=== PATIENT | male | born 1950 | race Caucasian/White ===

== ENCOUNTER 2025-03-20 09:36 | Emergency (ER) | payer MEDICARE, SELFPAY ==
[2025-03-20 09:39] VITALS: BP 135/79
--- NOTE | 2025-03-20 11:32 | ED.GENMED ---
History of Present Illness
General
Chief Complaint: Musculo-Skeletal Complaint
Source: patient
Exam Limitations: none
Time Seen by Provider: 03/20/25 11:04
Nursing documentation reviewed up to this point in time: agreed with
History of Present Illness
History of Present Illness:
Patient is a 74-year-old male presenting to the emergency department with right wrist pain following trip and fall 2 nights ago. Patient states he was walking into his house when he tripped on the last 2 stairs falling with his right hand
outstretched. He reports worsening pain and swelling in his right hand/wrist since. He has very limited range of motion right wrist secondary to pain.
Patient is adamant that there was no head strike or LOC. Patient states that he was not alone at the time of fall. Patient denies any pain in his lower extremities or difficulties ambulating since.
He denies any fever or chills.
Patient states he has suffered many injuries to his wrists in the past as he played hockey growing up.
Review of Systems
Review of Systems
Allergies reviewed?: Yes
All Other Systems: ROS reviewed and negative except as documented in HPI and ROS
Phy Exam
Physical Exam
Physical Exam:
Vitals: Tachycardic on arrival, improved on my assessment. Afebrile
General: Patient is well appearing, no acute distress
Skin: Warm and dry, no rashes or lesions
Head: Normocephalic, atraumatic
Eyes: Sclera nonicteric.
Throat: Protecting airway
Neck: Normal ROM, no cervical spine tenderness, no meningismus
Cardiac: Regular rate and rhythm, no murmurs.
Pulm: Normal respiratory effort, no wheezes, rales, rhonchi heard on exam.
Abdomen: No abdominal tenderness.
Extremities: Tenderness and edema of right wrist, more notable at dorsal aspect. Small area of erythema of dorsal right wrist at radial aspect. Limited ROM in R wrist due to pain. No significant warmth in right wrist or red streaking. No open
wounds. 2+ palpable R radial pulse w/ normal capillary refill.
Neuro: AAOx3. Grossly intact.
Psychiatric: Normal affect.
Course
Orders/Labs/Results
Orders:
Orders
03/20/25 09:44
CR Hand - Right Min 3 Views Urgent
Comment:
Reason For Exam: fall
CR Wrist - Right Min 3 Views Urgent
Comment:
Reason For Exam: fall
03/20/25 12:35
Prednisone [Deltasone] 50 mg PO NOW STA
Vital Signs
Initial and Last Documented VS:
Initial Vital Signs
Temp Pulse Resp BP Pulse Ox
98.7 F 113 18 135/79 96
03/20/25 09:39 03/20/25 09:39 03/20/25 09:39 03/20/25 09:39 03/20/25 09:39
Last Documented Vital Signs
Temp Pulse Resp BP Pulse Ox
98.7 F 95 16 139/87 98
03/20/25 09:39 03/20/25 12:53 03/20/25 12:53 03/20/25 12:53 03/20/25 12:53
MDM/Problems Addressed
Differential Diagnosis Includes:
Not limited to: Wrist fracture, hand fracture, wrist sprain, wrist contusion, osteoarthritis, gouty arthritis, septic arthritis, etc.
MDM/Problems Addressed:
74-year-old male with right wrist pain and swelling following trip and fall 2 nights ago. No head strike or loss of consciousness. Vitals and physical exam as above. Patient mildly tachycardic on arrival although improved by my assessment. He is
afebrile. X-ray of right wrist and right hand negative for acute fracture. No significant warmth or infectious symptoms to suggest septic joint. Consider possibility of inflammatory arthritis including gout although this would be very incidental
given recent trauma. He also has no history of gout. However�will give dose of prednisone in ED. He has a wrist splint at home into a use. Possible wrist sprain. Advised ice, elevation, Tylenol for pain. Strict return precautions discussed
including any signs of infection. Patient will follow-up with orthopedics for further evaluation�contact information provided today. Stable for discharge home. Patient seen with attending physician
Chronic conditions affecting care:
N/A
Acute Exacerbation and/or Progression of Chronic Illness:
N/A
*Radiology
Radiology exam reviewed: preliminary read by ED provider (X-rays of right wrist and right hand reviewed by me-no acute fracture) and radiology read reviewed
*Pulse Oximetry
Patient hypoxic: no
*EKG
Interpreted by ED Provider?: NA
*Desktop Support Associate Interpretation
Rate: Desktop Support Associate- N/A
*Critical Care Note
Total Time (30-74mins, 75-104mins- exclusive of procedures): Not Applicable
ED Attending Note
-
Portions of this chart may have been created with voice recognition software.� Occasional wrong word or��sound alike� substitutions may have occurred due to the inherent limitations of voice recognition software.
Discharge Plan
Departure
Patient Disposition: Home (Routine Discharge)
Date of Disposition: 03/20/25
Time of Disposition: 12:35
Patient with high blood pressure during this ER visit?: Yes
Condition: Good
Covid-19: Not Applicable
Discharge Problem:
Pain in right wrist
Instructions: BLOOD PRESSURE
Referrals:
Ignacia Ansari NP [Family Provider] -
Gustavo Driscoll MD [Active] - Call in 1-3 days for appt
Omar Harvey MD [Active] - Call in 1-3 days for appt
Activity Restrictions/Additional Instructions:
RETURN TO THE EMERGENCY DEPARTMENT ANY FEVER, CHILLS, WORSENING REDNESS, SWELLING, WARMTH OF RIGHT WRIST, INTRACTABLE PAIN, OR ANY OTHER CONCERNS
- As discussed�your x-ray showed no evidence of acute fracture of your right wrist or hand. You should wear wrist splint and continue to elevate and apply ice. You can take Tylenol as needed for pain.
- Follow-up with orthopedics for further evaluation/management to ensure that symptoms are improving
- Monitor very closely for signs of infection
Interventions
Interventions:
*Risk Screen - Suicide Last Done: 03/20/25 09:39
*General Assessment Last Done: 03/20/25 09:39
*Neglect/Abuse Screening Last Done: 03/20/25 09:39
*ED- Fall Risk Assessment Last Done: 03/20/25 10:45
*ED COVID-19 Vaccine History Last Done: 03/20/25 09:39
*Nursing Disposition Last Done: 03/20/25 12:54
ED-Musculoskeletal Assessment Last Done: 03/20/25 10:45
Discharge Date and Time
Discharge Date/Time: 03/20/25 12:54
Print Language: MALAY
[2025-03-20 11:48] VITALS: BP 143/81
[2025-03-20] MEDS: DELTASONE 50 MG PO (12:47)
[2025-03-20 12:53] VITALS: BP 139/87
== END 2025-03-20 12:54 | disposition home or self-care (01) ==
LOC: EMR 09:36
PROVIDERS: EMERGENCY PHYSICIAN Emergency Medicine; FAMILY PHYSICIAN Nurse Practitioner Family
DX: M25.531 Pain in right wrist (principal); W10.9XXA Fall (on) (from) unspecified stairs and steps, initial encounter; Y93.01 Activity, walking, marching and hiking
CPT/HCPCS: 99283; 73110; 73130

== ENCOUNTER 2025-04-15 16:26 | Inpatient (IN) | payer MEDICARE, SELFPAY ==
[2025-04-15 11:09] VITALS: BP 144/84
[2025-04-15 11:14] VITALS: BMI 25.1
[2025-04-15 12:00] VITALS: BP 143/71
--- NOTE | 2025-04-15 12:55 | ED.GENMED ---
History of Present Illness
General
Chief Complaint: Fall
Source: patient
Time Seen by Provider: 04/15/25 12:24
History of Present Illness
History of Present Illness:
74-year-old male with past medical history of hypertension, atrial fibrillation status post CEA presenting to the emergency department via EMS from home for evaluation after last night his feet got tangled causing him to fall onto his right side
injuring, initially was able to get himself off the ground but has had progressively worsening pain since and now unable to ambulate. Patient notes that this was the first time he is ever fallen, he is anticoagulated on Eliquis due to his history
of A-fib but maintains he did not and has no current headache or other neurologic symptoms. Patient denies any history of right hip injury. He did receive 80 mcg of fentanyl by EMS but still notes about a 5 out of 10 pain currently. No other
injuries were sustained.
Past History
Past History
ED Past Medical History: Arrthythmia and HTN
ED Past Surgical History: Orthopedic, Tonsilectomy and Other (Carotid endarterectomy)
Social History
Tobacco: Non-smoker
Alcohol: None
Drug: None
Personal:
Living: with family
Review of Systems
Review of Systems
All Other Systems: ROS reviewed and negative except as documented in HPI and ROS
Phy Exam
Physical Exam
Physical Exam:
GENERAL: Alert , in no apparent distress
HEAD: Normocephalic atraumatic
EYE: Clear conjunctiva
NECK: Supple, no midline tenderness
ENT: o/p clr, mmm.
CARDIAC: Regular rate and rhythm .
LUNGS: Clear breath sounds bilaterally, no acute respiratory distress, no wheezes/rales/rhonchi
NEUROLOGICAL: Alert and oriented, no focal neuro deficits
SKIN: Warm and dry, skin intact.
MUSCULOSKELETAL: Right lower extremity: No obvious deformity, shortening or rotation of the extremity. There is tenderness over the proximal anterior and somewhat lateral femur/hip. Patient unable to forward flex or extend the hip as well as
unable to abduct/adduct the right lower extremity. Extremity is otherwise warm well-perfused, palpable pedal and tibial pulse. Sensation grossly intact to light touch. No edema, well perfused.
PSYCH: Normal and appropriate interaction.
Course
Orders/Labs/Results
Orders:
Orders
04/15/25 12:19
Hip, Right 2-3 Views [CR Hip - RT w/wo Pel 2-3 Vw*] Urgent
Comment:
Reason For Exam: fall
Include a pelvis x-ray?: Yes
04/15/25 12:51
CT Head W/o Iv Contrast Urgent
Comment:
Reason For Exam: fall, on eliquis
HYDROmorphone [Dilaudid] 0.5 mg IV NOW STA
04/15/25 13:13
Basic Metabolic Panel Urgent
Complete Blood Count/With Diff Urgent
PTT Urgent
Prothrombin Time Urgent
04/15/25 15:15
HYDROmorphone [Dilaudid] 0.5 mg IV NOW STA
04/15/25 15:56
Admit/Transfer Patient As Directed
Co-Sign Provider:
Level of Care: Inpatient admission
Assign to:: Medical/Surgical
Physician / Group: Jean Pierre Hunter
Diagnosis: Impacted nondisplaced right femoral neck fracture
Reason for Hospitalization: Impacted nondisplaced right femoral neck fracture
Expected length of stay greater than two midnights?: Yes
ELOS- Estimated Length of Stay in days: 3
I certify the patient meets the requirements for IP care: Yes
PRN Pain Medication Management As Directed
May give lesser potent ordered pain med per pt: Yes
preference::
Protocol:: Medication orders for pain may be administered in a
manner that supports deferring to patient preference
when the pt is:
- Requesting an ordered lesser potent pain medication.
Least to most potent pain medications are defined
as: acetaminophen < NSAID < tramadol < opioids
(morphine, oxycodone, hydromorphone).
- Requesting a lesser dose of the same medication IF
ORDERED.
- Requesting a less intrusive route of administration
if both routes are prescribed by the provider (PO <
IV).
04/15/25 15:57
Code Status As Directed
Resuscitation Status: Do not resuscitate
Reached after discussion with pt or family/Healthcare POA: Yes
Decision communicated with: patient
DNR Bracelet Application ONCE
Abnormal Lab Results
04/15/25
13:13
RBC 3.84 L 10^6/uL
(4.70-6.10)
Hgb 12.5 L g/dL
(13.0-18.0)
Hct 35.5 L %
(39.0-52.0)
MCH 32.6 H pg
(27.0-31.0)
RDW 14.9 H %
(11.5-14.5)
Absolute Lymphs (auto) 0.9 L 10^3/uL
(1.2-3.4)
Absolute Monos (auto) 0.7 H 10^3/uL
(0.1-0.6)
Neutrophils % 77.0 H %
(42.2-75.2)
Lymphocytes % 12.7 L %
(20.5-51.1)
Monocytes % 9.6 H %
(1.7-9.3)
PT 16.6 H Sec
(11.4-14.6)
04/15/25 13:13
04/15/25 13:13
Vital Signs
Initial and Last Documented VS:
Initial Vital Signs
Temp Pulse Resp BP Pulse Ox
98.1 F 86 16 144/84 94
04/15/25 11:09 04/15/25 11:09 04/15/25 11:09 04/15/25 11:09 04/15/25 11:09
Last Documented Vital Signs
Temp Pulse Resp BP Pulse Ox
98.1 F 94 16 148/86 87
04/15/25 11:09 04/15/25 16:00 04/15/25 16:00 04/15/25 14:07 04/15/25 16:00
MDM/Problems Addressed
Differential Diagnosis Includes:
Proximal hip/femur fracture, pelvic fracture, bursitis, contusion, intracranial bleeding
MDM/Problems Addressed:
74-year-old male presenting to the ER for evaluation for an accidental trip and fall that occurred last night, now unable to ambulate. No history of falls in the past. Patient anticoagulated on Eliquis due to history of atrial fibrillation. X-ray
of the right hip ordered on arrival. Will order head CT given potential for distracting injury and patient's anticoagulated status. Pain control with Dilaudid. Patient may need PT and case management consult as he is currently unable to ambulate
and may not be able to discharge home safely.
Chronic conditions affecting care: Arrhythmia
*Radiology
Radiology exam reviewed: preliminary read by ED provider (Right femoral neck fracture) and radiology read reviewed
*Pulse Oximetry
Patient hypoxic: no
*Critical Care Note
Total Time (30-74mins, 75-104mins- exclusive of procedures): Not Applicable
Patient Management
Discussion with other providers: Hospitalist and Contract Graphic Designer
Escalation/DeEscalation of care consider admission/obs:
Patient's x-ray of the right hip does show a nondisplaced right femoral neck fracture. The images were sent to orthopedics who will see the patient in consult. Labs appear without any significant acute abnormalities. Hospitalist team was notified
and accepts for continued evaluation and treatment. Patient will likely need operative management for his hip but given he is anticoagulated will likely need at least 1 day for Eliquis washout.
ED Attending Note
-
Portions of this chart may have been created with voice recognition software.� Occasional wrong word or��sound alike� substitutions may have occurred due to the inherent limitations of voice recognition software.
Discharge Plan
Departure
Patient Disposition: Admit
Date of Disposition: 04/15/25
Time of Disposition: 15:00
Presentation/result/management discussed w/ accepting MD/DO: Hospitalist
Discharge Problem:
Closed fracture of neck of right femur
Prescriptions:
No Action
hydrocodone-ibuprofen 7.5-200 mg Tablet
1 tab PO BIDPRN PRN (Reason: severe pains)
Patient Comments:
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
atorvastatin [Lipitor] 20 mg Tablet
20 mg PO DAILY
metoprolol succinate [Toprol XL] 100 mg Tablet Extended Release 24 Hr
100 mg PO DAILY
Theragen Tablet
1 tab PO DAILY
aspirin 81 mg Tablet,Delayed Release (Dr/Ec)
81 mg PO DAILY
tamsulosin [Flomax] 0.4 mg Capsule
0.4 mg PO DAILY
amlodipine [Norvasc] 10 mg Tablet
10 mg PO DAILY
escitalopram oxalate [Lexapro] 5 mg Tablet
5 mg PO DAILY
Eliquis 5 mg Tablet
5 mg PO BID
Referrals:
Ignacia Ansari NP [Family Provider] -
Interventions
Interventions:
*Risk Screen - Suicide Last Done: 04/15/25 11:11
*General Assessment Last Done: 04/15/25 11:09
*Neglect/Abuse Screening Last Done: 04/15/25 11:11
*ED- Fall Risk Assessment Last Done: 04/15/25 11:09
*ED COVID-19 Vaccine History Last Done: 04/15/25 11:09
ED-Musculoskeletal Assessment Last Done: 04/15/25 11:13
ED- Neurological Assessment Last Done: 04/15/25 11:13
ED-Skin Assessment Last Done: 04/15/25 11:13
Discharge Date and Time
Print Language: SIER[place] LEONE[place]
[2025-04-15] MEDS: DILAUDID 0.5 MG IV ×3 (13:14→19:08)
[2025-04-15 13:24] LABS: % Basophils 0.4 % (0-2); % Immature Granulocytes 0.3 % (0-0.5); % Lymphocytes 12.7 % (20.5-51.1); % Monocytes 9.6 % (1.7-9.3); Absolute Lymphocytes 0.9 10^3/uL (1.2-3.4); Absolute Monocytes 0.7 10^3/uL (0.1-0.6); Absolute Neutrophils 5.3 10^3/uL (1.4-6.5); Hematocrit 35.5 % (39.0-52.0); Hemoglobin 12.5 g/dL (13.0-18.0); Mean Corp Hgb Conc. 35.2 g/dL (33.0-37.0); Mean Corpuscular Hgb 32.6 pg (27.0-31.0); Mean Corpuscular Volume 92.4 fL (80.0-94.0); Mean Platelet Volume 9.2 fL (7.4-10.4); Nucleated Red Blood Cells % 0 % (-); Platelet Count 145 10^3/uL (130-400); Red Blood Cell Count 3.84 10^6/uL (4.70-6.10); Red Cell Dist. Width 14.9 % (11.5-14.5); White Blood Cell Count 6.9 10^3/uL (4.8-10.8)
[2025-04-15 13:37] LABS: INR 1.32; PT 16.6 Sec (11.4-14.6)
[2025-04-15 13:38] LABS: APTT 33.6 Sec (23.4-35.0)
[2025-04-15 14:07] VITALS: BP 148/86
[2025-04-15 14:14] LABS: Blood Urea Nitrogen 14 mg/dl (9-20); Calcium 8.6 mg/dl (8.4-10.2); Carbon Dioxide 22 mmol/L (22-30); Chloride 105 mmol/L (98-107); Estimated Creatinine Clearance 86 ml/min; Glucose 94 mg/dl (70-99); Potassium 4.1 mmol/L (3.5-5.1); Sodium 136 mmol/L (135-145); eGFR > 60.00
--- NOTE | 2025-04-15 15:17 | HPS.HSE ---
Family Physician
-
Family Physician: Ignacia Ansari NP
Chief Complaint
-
Mechanical fall
History of Present Illness
Patient is a 74-year-old male with past medical history significant for hypertension, atrial fibrillation and depression/anxiety who presented to [facility] ED for evaluation of mechanical fall. Patient reports that tip of his toes got caught on bottom
side of railing on deck causing him to fall. He reports landing on right side and denies head strike. He has abrasions to right arm and pain in right hip. He was able to get himself up, he did an army crawl and able to get up to a chair but had
difficulty ambulating, this morning he was unable to ambulate at all. Patient has bilateral upper extremity bruising that he states he has all the time from being on Eliquis. Patient denies any recent illness, fever, chills, cough, shortness of
breath, chest pain, nausea, vomiting, constipation, diarrhea or urinary symptoms.
Medical History
Past Medical History
Past Medical History: Reports Other
Additional Past Medical History:
hypertension
atrial fibrillation
depression/anxiety
Past Surgical History: Reports Orthopedic and Other
Additional Past Surgical History:
bilateral carotid CEA
tonsillectomy
bilateral cataract extraction
Social History
Tobacco: Former Smoker (quit approximately 20 years ago)
Alcohol: Daily (2-3 beers daily )
Drug: None
Living: Alone
Employment: Retired
Family History
Family History: Not pertinent
Allergies / Home Medications
Allergies reflects when Allergies were last updated in [facility].
Home Medications with original date entered in [facility]
Allergy/Medication List:
Allergies
Allergy/AdvReac Type Severity Reaction Status Date / Time
NKA - No Known Allergies Allergy Unknown Uncoded 03/20/25 09:44
Home Medications
amlodipine 10 mg tablet (Norvasc) 10 mg PO DAILY 04/15/25
apixaban 5 mg tablet (Eliquis) 5 mg PO BID 04/15/25
aspirin 81 mg tablet,delayed release 81 mg PO DAILY 04/15/25
atorvastatin 20 mg tablet (Lipitor) 20 mg PO DAILY 04/15/25
escitalopram oxalate 5 mg tablet (Lexapro) 5 mg PO DAILY 04/15/25
hydrocodone 7.5 mg-ibuprofen 200 mg tablet 1 tab PO BIDPRN PRN severe pains 04/15/25
metoprolol succinate 100 mg tablet,extended release 24 hr (Toprol XL) 100 mg PO DAILY 04/15/25
tamsulosin 0.4 mg capsule (Flomax) 0.4 mg PO DAILY 04/15/25
therapeutic multivitamin 1 tab PO DAILY 04/15/25
Review of Systems
-
History Source: Patient
Musculoskeletal: Reports Joint Pain (right hip pain )
Physical Exam
Vital Signs
Vital Signs
Temp Pulse Resp BP Pulse Ox
98.1 F 96 16 148/86 95
04/15/25 11:09 04/15/25 14:07 04/15/25 14:11 04/15/25 14:07 04/15/25 12:45
Physical Exam
General: Well Developed, Well Nourished, No Apparent Distress and Conversant
HEENT: NormoCephalic, Moist mucous membranes, Atraumatic, Lane Conjunctivae, Nose Appears Normal and Ears Appear Normal
Respiratory: Clear
Cardiac: S1/S2 and Regular Rhythm
Breast: Deferred by me
GI: Soft, Non Tender, Non Distended and Normal Bowel Sounds
Rectal: Deferred by Provider
Genito-urinary: Deferred by me
Musculoskeletal: No Clubbing, No Cyanosis, Edema, Left Lower Extremity (trace), Edema, Right Lower Extremity and Other (limited ROM to right hip, unable to forward flex or extend, unable to abduct/adduct the right lower extremity )
Skin: Warm, IV/Catheter Site and Other (bruising to bilateral upper and lower extremities )
Neuro: Awake, Alert, AO x 3 and Nonfocal/grossly intact
Psych: Calm and Intact Judgment/Insight
Laboratory Results
-
04/15/25 13:13
04/15/25 13:13
Laboratory Results
PT 16.6 Sec (11.4-14.6) H 04/15/25 13:13
INR 1.32 04/15/25 13:13
APTT 33.6 Sec (23.4-35.0) 04/15/25 13:13
Data Reviewed
-
Diagnostic Radiology: Report Reviewed by me (R Hip: Impacted nondisplaced right femoral neck fracture.)
CT Scan: Report Reviewed by me (Head: No acute intracranial abnormalities. Findings compatible with diffuse cortical atrophy with nonspecific white matter changes as described above.)
Lab Data: Labs Reviewed by me
Impression/Plan
-
IMPRESSION/PLAN:
#mechanical fall
Right Hip X-ray: Impacted nondisplaced right femoral neck fracture.
Head CT: No acute intracranial abnormalities.
Findings compatible with diffuse cortical atrophy with nonspecific white matter changes as described above.
- Admit to med/surg
- Obtain presurgical EKG
- NPO at midnight
- Consult Ortho
- pain regimen
#hypertension
- continue amlodipine and metoprolol
#atrial fibrillation
- continue metoprolol
- Hold Eliquis for surgery
#depression/anxiety
- continue escitalopram
#BPH?
- continue tamsulosin
Code status: DNR
DVT prophylaxis: SCDs
--- NOTE | 2025-04-15 16:12 | W.PN.UPDATE ---
Update Note
Progress Note Update
This note serves as an addendum to the H&P by manager alliance ARLENE Cindy George
HPI
74M HX HTN, Prx AF , chr eliquis , s/p CEA seen at ER s/p mecahanical fall onto the Rt side pw acute Rt Hip pian, Denied hitting head. NEG HCT for acute pathology.
VS: afebrile HR 96 BP 148/85 RR 16 POx 95 on RA
PE:
Right lower extremity:
No obvious deformity, shortening or rotation of the extremity.
tenderness over the proximal anterior and somewhat lateral femur/hip.
unable to forward flex or extend the hip as well as unable to abduct/adduct the right lower extremity. E
XR: Impacted nondisplaced right femoral neck fracture.
labs
04/15/25
13:13
RBC 3.84 L
Hgb 12.5 L
Hct 35.5 L
MCH 32.6 H
RDW 14.9 H
Absolute Lymphs (auto) 0.9 L
Absolute Monos (auto) 0.7 H
Neutrophils % 77.0 H
Lymphocytes % 12.7 L
Monocytes % 9.6 H
PT 16.6 H
IMPRESSION
Impacted nondisplaced right femoral neck fracture s/p mechanincal fall
Benefits of ORIF outweigh to procedd for OR
Head CT: No acute intracranial abnormalities.
- EKG on admission
- NPO and IVF
- Fx set protocol
- Hold Eliquis
- Ortho consulted
Prx atrial fibrillation
- continue metoprolol
- Hold Eliquis for surgery
Depression/anxiety
- continue escitalopram
BPH?
- continue tamsulosin
DVT px :SCDs
DNR pr patient
IP TLM'
[2025-04-15 17:33] VITALS: BP 160/81
[2025-04-15 17:55] VITALS: BP 155/78
[2025-04-15 18:01] VITALS: BMI 24.5
--- NOTE | 2025-04-15 19:29 | PTCARENOTE ---
Pt arrived to [facility] on a stretcher from the ED and was pulled over. Pt in 08/29 pain. Pt has abrasions on the right arm from the right wrist to right elbow which were cleansed with saline and silicone border foams were placed. Pt has an abrasion on
the right ankle KISHORE. Admission questions answered. Call sullivan within reach. Bed locked and in lowest position. Care ongoing.
[2025-04-15] MEDS: FLOMAX 0.4 MG PO (19:39)
[2025-04-15 23:00] VITALS: BP 152/91
[2025-04-16] MEDS: DILAUDID 0.5 MG IV ×4 (02:24→21:05)
[2025-04-16 07:25] VITALS: BP 149/92
[2025-04-16 07:25] LABS: Hematocrit 36.7 % (39.0-52.0); Hemoglobin 12.7 g/dL (13.0-18.0); Mean Corp Hgb Conc. 34.6 g/dL (33.0-37.0); Mean Corpuscular Hgb 32.6 pg (27.0-31.0); Mean Corpuscular Volume 94.1 fL (80.0-94.0); Mean Platelet Volume 9.4 fL (7.4-10.4); Platelet Count 139 10^3/uL (130-400); Red Cell Dist. Width 14.8 % (11.5-14.5); White Blood Cell Count 6.7 10^3/uL (4.8-10.8)
--- NOTE | 2025-04-16 08:00 | CON.ORTHO ---
Consultation
-
Date/Time Consultation Requested: 04/15/2025; time unknown
Date/Time Consultation Performed: 04/16/2025; 0630
Requesting Provider: unknown
Performing Provider: Lisa Macias PA-C for Dr. Holden Deleon
Reason for Consultation: Right femoral neck fracture
Consultation - Orthopedics
History
is a 74 year old male with PMH of hypertension, atrial fibrillation on Eliquis and depression/anxiety seen today for his right hip. He reports he tripped on his deck and landed on his right side. He was able to get up off the ground
initially, but states he did experience pain and difficulty walking following the fall. He presented to ED via EMS where hip x-ray revealed an impacted femoral neck fracture. He endorses aching pain at present. He denies pain elsewhere.
Patient lives independently. He ambulates without assistance at baseline. He denies PMH of DVT, CVA, CA or DM. He denies known history of difficulty with anesthesia.
Allergies / Home Medications
Allergy/AdvReac Type Severity Reaction Status Date / Time
No Known Allergies Allergy Unverified 04/15/25 17:48
�Medication �Instructions �Recorded
amlodipine 10 mg tablet (Norvasc) 10 mg PO DAILY 04/15/25
apixaban 5 mg tablet (Eliquis) 5 mg PO BID 04/15/25
aspirin 81 mg tablet,delayed 81 mg PO DAILY 04/15/25
release
atorvastatin 20 mg tablet (Lipitor) 20 mg PO DAILY 04/15/25
escitalopram oxalate 5 mg tablet 5 mg PO DAILY 04/15/25
(Lexapro)
hydrocodone 7.5 mg-ibuprofen 200 1 tab PO BIDPRN PRN severe pains 04/15/25
mg tablet
metoprolol succinate 100 mg 100 mg PO DAILY 04/15/25
tablet,extended release 24 hr
(Toprol XL)
tamsulosin 0.4 mg capsule (Flomax) 0.4 mg PO DAILY 04/15/25
therapeutic multivitamin 1 tab PO DAILY 04/15/25
Vital Signs / Lab Results
Temp Pulse Resp BP Pulse Ox
99.0 F 116 18 149/92 92
04/16/25 07:25 04/16/25 07:25 04/16/25 07:25 04/16/25 07:25 04/16/25 07:25
04/16/25 06:31
XR Right hip 04/15/25 IMPRESSION:
Impacted nondisplaced right femoral neck fracture.
Directed exam of the right lower extremity reveals no erythema, ecchymosis or lesions. No significant tenderness to palpation about the hip. Thigh soft and compressible. ROM deferred secondary to known fracture. Positive log roll. Calf soft and
nontender. Patient able to wiggle toes, plantar and dorsiflex ankle. Neurovascularly intact distally.
Assessment / Plan
Right femoral neck fracture
--Unfortunately, sustained a femoral neck fracture in his fall. I recommend proceeding with a right hip hemiarthroplasty. The risks, benefits, alternatives, recovery process and potential complications were discussed in detail. We will plan
for OR Monday under the direction of Dr. Tsai after Eliquis washout. Patient would like to proceed with surgery. Surgical and blood consent are signed and on patient chart.
--NPO after midnight 04/18 for OR.
--NWB to RLE until surgery.
--Pain control prn. Ice prn for pain and edema control.
--Antibiotics and irrigation ordered to OR.
--Type and screen ordered.
--Orthopedics will continue to follow along.
[2025-04-16 08:09] LABS: ALT (SGPT) 25 U/L (0-50); AST (SGOT) 41 U/L (17-59); Albumin 3.8 g/dl (3.5-5.0); Alkaline Phosphatase 106 U/L (38-126); Blood Urea Nitrogen 13 mg/dl (9-20); Calcium 8.7 mg/dl (8.4-10.2); Carbon Dioxide 27 mmol/L (22-30); Chloride 102 mmol/L (98-107); Estimated Creatinine Clearance 99 ml/min; Glucose 94 mg/dl (70-99); Potassium 3.7 mmol/L (3.5-5.1); Sodium 136 mmol/L (135-145); Total Bilirubin 2.1 mg/dl (0.2-1.3); Total Protein 6.8 g/dl (6.3-8.2); eGFR > 60.00
[2025-04-16] MEDS: LEXAPRO 5 MG PO (08:13)
[2025-04-16] MEDS: ASPIR LOW (ENTERIC COATED) 81 MG PO (08:13)
[2025-04-16] MEDS: LIPITOR 20 MG PO (08:13)
[2025-04-16] MEDS: TOPROL XL 100 MG PO (08:14)
[2025-04-16] MEDS: THERAGRAN 1 TABLET PO (08:14)
[2025-04-16] MEDS: NORVASC 10 MG PO (08:14)
--- NOTE | 2025-04-16 09:40 | W.PN.HOSP.TC ---
Today's Communication/Plan
-
MSAS protocol
needed Ativan
Folic acid
Thiamine
will d/w ortho about DVT prophylaxis protocol
EKG is ordered
Assessment / Plan
Assessment / Plan
Physical Exam
General: Well Developed, Well Nourished, No Apparent Distress and Conversant
HEENT: NormoCephalic, Moist mucous membranes, Atraumatic, [place] Conjunctivae, Nose Appears Normal and Ears Appear Normal
Respiratory: Clear
Cardiac: S1/S2 and Regular Rhythm
Breast: Deferred by me
GI: Soft, Non Tender, Non Distended and Normal Bowel Sounds
Rectal: Deferred by Provider
Genito-urinary: Deferred by me
Musculoskeletal: No Clubbing, No Cyanosis, Edema, Left Lower Extremity (trace), Edema, Right Lower Extremity and Other (limited ROM to right hip, unable to forward flex or extend, unable to abduct/adduct the right lower extremity )
Skin: Warm, IV/Catheter Site and Other (bruising to bilateral upper and lower extremities )
Neuro: Awake, Alert, AO x 3 and Nonfocal/grossly intact
Psych: Calm and Intact Judgment/Insight
#mechanical fall
Right Hip X-ray: Impacted nondisplaced right femoral neck fracture.
Head CT: No acute intracranial abnormalities.
Findings compatible with diffuse cortical atrophy with nonspecific white matter changes as described above.
- Surgery Monday per ortho for Eliquis washout
- c/w pain control
- will ask ortho service if pharmacological DVT prophylaxis pre - op is permitted.
#essential hypertension
- continue amlodipine and metoprolol
#Permanent atrial fibrillation
Order stat EKG, was not done on admission
- continue metoprolol
- Hold Eliquis for surgery
#depression/anxiety
- continue escitalopram
#BPH
- continue tamsulosin
# Daily alcohol use could be contributing to his falls,. High risk for withdrawal. Patient admits to daily intake of alcohol. Denies withdrawal symptoms right now. Will start MSAS protocol and as needed Ativan. Add thiamine and folic acid
Code status: DNR
DVT prophylaxis: SCDs
Total time spent to see the patient, examine the patient, review data and lab results, discuss treatment plan with patient and nursing staff around 55 minutes
Anticipated Discharge: > 48 hours
Subjective/Interval History
-
Date of Service: April 16, 2025
He denies chest pain or abd pain
Admit to drinking alcohol daily but does not feel withdrawal symptoms
Objective Data
-
Labs:
Laboratory Results
04/16/25
06:31
WBC 6.7
Hgb 12.7 L
Hct 36.7 L
Plt Count 139
Sodium 136
Potassium 3.7
Chloride 102
Carbon Dioxide 27
BUN 13
Creatinine 0.7
Glucose 94
Calcium 8.7
Total Bilirubin 2.1 H
AST 41
ALT 25
Alkaline Phosphatase 106
Vital Signs:
Vital Signs
Temp Pulse Resp BP Pulse Ox
99.0 F 116 18 149/92 92
04/16/25 07:25 04/16/25 08:14 04/16/25 07:25 04/16/25 08:14 04/16/25 08:36
I&O
04/15/25 04/16/25 04/17/25
06:59 06:59 06:59
Intake Total 480 / 480
Output Total 500 / 500
Balance 480 / -20 -500 / -500
--- NOTE | 2025-04-16 09:43 | CM ---
Cm reviewed medical records. Patient lives alone. Patient does not have a history of VN or SNF. Patient does not rely on any DME at this time. Patient is active with his PCP. Patient uses [facility] in [place] for medication services.
CM discussed SNF. Patient would be agreeable to [facility] if recommended by PT. Pending OR on 04/18.
PLAN: home with VN, vs SNF.
[2025-04-16] MEDS: THIAMINE INJECTION 200 MG IV ×2 (10:40→20:55)
[2025-04-16] MEDS: FOLVITE 1 MG PO (10:40)
[2025-04-16] MEDS: ATIVAN 0.5 MG PO (12:07)
--- NOTE | 2025-04-16 12:14 | PTCARENOTE ---
Preop EKG obtained, Afib with RVR. HR remaining in the 110's. MSAS score 4. Dr. Brambila notified. 1x ordered ativan ordered. Care ongoing.
[2025-04-16 15:20] VITALS: BP 150/94
[2025-04-16] MEDS: FLOMAX 0.4 MG PO (17:36)
--- NOTE | 2025-04-16 17:42 | DOWNTIME ---
There was a [employer] Downtime on 04/16/2025 from 1230 to 04/16/2025 at 1550. Downtime documentation of patient's care, including medication administrations, has been reconciled in the electronic record per guidelines. Refer to the
patient's paper chart under the miscellaneous tab to see printed paper medication records and downtime forms.
[2025-04-16] MEDS: HEPARIN 5000 UNITS SC (20:55)
[2025-04-16] MEDS: ATIVAN 1 MG IV (22:25)
[2025-04-16 23:25] VITALS: BP 138/92
[2025-04-17 07:10] VITALS: BP 148/90
--- NOTE | 2025-04-17 08:02 | W.PN.UPDATE ---
Update Note
Progress Note Update
Patient endorses right hip pain and x-rays show impacted and displaced femoral neck fracture. He is slated to undergo right hip hemiarthroplasty April 18, [address] Tsai after Eliquis washout. N.p.o. after midnight. Yasmin on-call to the
operating room. Antibiotic and TXA irrigation to be sent to operating room for tomorrow. Surgical location marked and consent on chart.
[2025-04-17] MEDS: THERAGRAN 1 TABLET PO (08:45)
[2025-04-17] MEDS: FOLVITE 1 MG PO (08:45)
[2025-04-17] MEDS: LIPITOR 20 MG PO (08:45)
[2025-04-17] MEDS: TOPROL XL 100 MG PO (08:45)
[2025-04-17] MEDS: ASPIR LOW (ENTERIC COATED) 81 MG PO (08:45)
[2025-04-17] MEDS: THIAMINE INJECTION 200 MG IV ×2 (08:45→19:24)
[2025-04-17] MEDS: LEXAPRO 5 MG PO (08:45)
[2025-04-17] MEDS: CARDIZEM CD 180 MG PO (08:45)
[2025-04-17] MEDS: ATIVAN 0.5 MG PO ×3 (08:45→21:20)
[2025-04-17] MEDS: HEPARIN 5000 UNITS SC (08:46)
--- NOTE | 2025-04-17 09:25 | W.PN.HOSP.TC ---
Addendum entered and electronically signed by Erika Brambila MD 04/18/25 09:55:
Addendum
Preop evaluation
Patient denies anginal chest pain. No signs of acute congestive heart failure. Normal oxygenation. Patient has underlying cardiac disease. Patient understands risk of anesthesia and surgery. Benefit of flexing his a fracture and making him
ambulatory as soon as possible outweigh the risks.
Original Note:
Today's Communication/Plan
-
Positive alcohol withdrawal symptoms.
Adjusted medications,
High-dose thiamine
DVT prophylaxis until surgery
Assessment / Plan
Assessment / Plan
Physical Exam
General: Well Developed, Well Nourished, No Apparent Distress and Conversant
HEENT: Normocephalic, Moist mucous membranes, Atraumatic, [place] Conjunctivae, Nose Appears Normal and Ears Appear Normal
Respiratory: Clear
Cardiac: S1/S2 and Regular Rhythm
Breast: Deferred by me
GI: Soft, Non Tender, Non Distended and Normal Bowel Sounds
Rectal: Deferred by Provider
Genito-urinary: Deferred by me
Musculoskeletal: No Clubbing, No Cyanosis, Edema, Left Lower Extremity (trace), Edema, Right Lower Extremity and Other (limited ROM to right hip, unable to forward flex or extend, unable to abduct/adduct the right lower extremity )
Skin: Warm, IV/Catheter Site and Other (bruising to bilateral upper and lower extremities )
Neuro: Awake, Alert, AO x 3 and Nonfocal/grossly intact, tremor.
Psych: Calm, mild anxiety noted, Intact Judgment/Insight
# Daily alcohol use could be contributing to his falls.
High risk for withdrawal. Patient admits to daily intake of alcohol.
Admits to mild withdrawal symptoms he had some agitation and/hallucination overnight.
Discussed with nursing staff and patient. Patient prefers scheduled dose of Ativan. I will do low-dose Ativan with holding for sedation parameter. Discussed with nurse, will continue with MCS.
Continue with high-dose thiamine and folic acid
#Right femur fracture
mechanical fall
Right Hip X-ray: Impacted nondisplaced right femoral neck fracture.
Head CT: No acute intracranial abnormalities.
Findings compatible with diffuse cortical atrophy with nonspecific white matter changes as described above.
- Surgery Monday per ortho for Eliquis washout
- c/w pain control
- will ask ortho service if pharmacological DVT prophylaxis pre - op is permitted.
#essential hypertension
- continue amlodipine and metoprolol
#Permanent atrial fibrillation
Order stat EKG, was not done on admission
- continue metoprolol
- Hold Eliquis for surgery
#depression/anxiety
- continue escitalopram
#BPH
- continue tamsulosin
Code status: DNR
DVT prophylaxis: SCDs
Total time spent to see the patient, examine the patient, review data and lab results, discuss treatment plan with patient and nursing staff around 55 minutes
Anticipated Discharge: > 48 hours
Subjective/Interval History
-
Date of Service: April 17, 2025
He denies chest pain or sob, admit to having some withdrawal, wants Ativan to be a scheduled dose
Objective Data
-
Vital Signs:
Vital Signs
Temp Pulse Resp BP Pulse Ox
99.4 F 126 16 148/90 95
04/17/25 07:10 04/17/25 07:10 04/17/25 07:10 04/17/25 08:45 04/17/25 07:10
I&O
04/16/25 04/17/25 04/18/25
06:59 06:59 06:59
Intake Total 480 / 480 960 / 960
Output Total 1250 / 1250 200 / 200
Balance 480 / -20 -290 / -290 -200 / -200
--- NOTE | 2025-04-17 12:51 | CM ---
R hip hemiarthroplasty on 04/18/25. Discharge POC: Most likely SNF. Await PT recommendation.
[2025-04-17 15:00] VITALS: BP 115/81
[2025-04-17] MEDS: FLOMAX 0.4 MG PO (17:12)
[2025-04-17] MEDS: DILAUDID 0.25 MG IV ×2 (17:12→21:21)
[2025-04-17 23:00] VITALS: BP 147/88
[2025-04-18] VITALS (12 sets, daily range): BP systolic 98–155; BP diastolic 54–79
[2025-04-18] MEDS: DILAUDID 0.25 MG IV ×2 (03:01→09:13)
[2025-04-18 07:52] LABS: Hematocrit 35.5 % (39.0-52.0); Hemoglobin 12.9 g/dL (13.0-18.0); Mean Corp Hgb Conc. 36.3 g/dL (33.0-37.0); Mean Corpuscular Hgb 33.4 pg (27.0-31.0); Mean Platelet Volume 9.2 fL (7.4-10.4); Platelet Count 138 10^3/uL (130-400); Red Blood Cell Count 3.86 10^6/uL (4.70-6.10); Red Cell Dist. Width 14.4 % (11.5-14.5); White Blood Cell Count 6.7 10^3/uL (4.8-10.8)
[2025-04-18] MEDS: ANCEF 10 IV (08:23)
[2025-04-18] MEDS: ATIVAN 0.5 MG PO ×2 (08:23→17:18)
[2025-04-18] MEDS: THERAGRAN 1 TABLET PO (08:23)
[2025-04-18] MEDS: ASPIR LOW (ENTERIC COATED) 81 MG PO (08:23)
[2025-04-18] MEDS: LIPITOR 20 MG PO (08:23)
[2025-04-18] MEDS: CARDIZEM CD 180 MG PO (08:24)
[2025-04-18] MEDS: THIAMINE INJECTION 200 MG IV ×2 (08:24→20:38)
[2025-04-18] MEDS: TOPROL XL 100 MG PO (08:24)
[2025-04-18] MEDS: LEXAPRO 5 MG PO (08:24)
[2025-04-18] MEDS: FOLVITE 1 MG PO (08:24)
[2025-04-18 08:35] LABS: ALT (SGPT) 19 U/L (0-50); AST (SGOT) 31 U/L (17-59); Albumin 3.1 g/dl (3.5-5.0); Alkaline Phosphatase 81 U/L (38-126); Blood Urea Nitrogen 13 mg/dl (9-20); Calcium 8.4 mg/dl (8.4-10.2); Carbon Dioxide 26 mmol/L (22-30); Chloride 101 mmol/L (98-107); Estimated Creatinine Clearance 99 ml/min; Glucose 102 mg/dl (70-99); Potassium 3.5 mmol/L (3.5-5.1); Sodium 132 mmol/L (135-145); Total Bilirubin 1.8 mg/dl (0.2-1.3); Total Protein 5.9 g/dl (6.3-8.2); eGFR > 60.00
--- NOTE | 2025-04-18 09:09 | W.PN.HOSP.TC ---
Today's Communication/Plan
-
NPO today
Assessment / Plan
Assessment / Plan
Physical Exam
General: Well Developed, Well Nourished, No Apparent Distress and Conversant
HEENT: Normocephalic, Moist mucous membranes, Atraumatic, [place] Conjunctivae, Nose Appears Normal and Ears Appear Normal
Respiratory: Clear
Cardiac: S1/S2 and Regular Rhythm
Breast: Deferred by me
GI: Soft, Non Tender, Non Distended and Normal Bowel Sounds
Rectal: Deferred by Provider
Genito-urinary: Deferred by me
Musculoskeletal: No Clubbing, No Cyanosis, Edema, Left Lower Extremity (trace), Edema, Right Lower Extremity and Other (limited ROM to right hip, unable to forward flex or extend, unable to abduct/adduct the right lower extremity )
Skin: Warm, IV/Catheter Site and Other (bruising to bilateral upper and lower extremities )
Neuro: Awake, Alert, AO x 3 and Nonfocal/grossly intact, tremor.
Psych: Calm, mild anxiety noted, Intact Judgment/Insight
# Daily alcohol use could be contributing to his falls.
Risk for withdrawal. Patient admits to daily intake of alcohol.
Admits to mild withdrawal symptoms he had some agitation and/hallucination overnight. He seems to stabilize on oral Ativan
Discussed with nursing staff and patient. Patient prefers scheduled dose of Ativan. Discussed with nurse, c/w with MCS.
Continue with high-dose thiamine and folic acid
#Right femur fracture
mechanical fall
Right Hip X-ray: Impacted nondisplaced right femoral neck fracture.
Head CT: No acute intracranial abnormalities.
Findings compatible with diffuse cortical atrophy with nonspecific white matter changes as described above.
- Surgery today 04/18
- c/w pain control
- Appreciate ortho help
# hyponatremia, mild
#essential hypertension
- continue amlodipine and metoprolol
#Permanent atrial fibrillation
Order stat EKG, was not done on admission
- continue metoprolol
- Held Eliquis for surgery
#depression/anxiety
- continue escitalopram
#BPH
- continue tamsulosin
Code status: DNR
DVT prophylaxis: SCDs
Total time spent to see the patient, examine the patient, review data and lab results, discuss treatment plan with patient and nursing staff around 55 minutes
Anticipated Discharge: > 48 hours
Subjective/Interval History
-
Date of Service: April 18, 2025
Doing better, not in DT, taking oral Ativan
no chest pain
NPO today
Objective Data
-
Labs:
Laboratory Results
04/18/25
07:24
WBC 6.7
Hgb 12.9 L
Hct 35.5 L
Plt Count 138
Sodium 132 L
Potassium 3.5
Chloride 101
Carbon Dioxide 26
BUN 13
Creatinine 0.7
Glucose 102 H
Calcium 8.4
Total Bilirubin 1.8 H
AST 31
ALT 19
Alkaline Phosphatase 81
Vital Signs:
Vital Signs
Temp Pulse Resp BP Pulse Ox
99.7 F 116 15 155/79 94
04/18/25 07:22 04/18/25 07:22 04/18/25 07:22 04/18/25 07:22 04/18/25 07:22
I&O
04/17/25 04/18/25 04/19/25
06:59 06:59 06:59
Intake Total 960 / 960 480 / 480
Output Total 1250 / 1250 400 / 400
Balance -290 / -290 80 / 80
--- NOTE | 2025-04-18 11:12 | CM ---
Cm reviewed medical records. Plan for OR today 04/18. Cm will continue to follow for needs.
PLAN: pending PT evaluation Post Operatively.
--- NOTE | 2025-04-18 14:32 | W.IMMPOSTOP ---
Surgical Immed Post Op Note
-
Primary Surgeon: Terry Tsai MD
Assisting Surgeon: Julius Lal PA-C
Pre-op Diagnosis: right femoral neck fracture
Post-op Diagnosis: right femoral neck fracture
Procedure Performed: right hip hemiarthroplasty
Anesthesia Type: general
Specimen / Cultures: none
Estimated Blood Loss: 100mL
Complications: none apparent
Operative Findings: right femoral neck fracture
Implants: [employer] size 12 standard femoral neck, 54mm endoprosthetic head, size 10 cement restrictor
Operative dictation #: [id number]
[2025-04-18] MEDS: NSS 1000 IV (16:38)
[2025-04-18] MEDS: FLOMAX 0.4 MG PO (17:18)
--- NOTE | 2025-04-18 17:38 | SUR.PHASEI ---
vss, no pain, initially no verbal response and then confused to time and place, reorients easily. on discharge awake and alert and oriented to place and self. no pain.
[2025-04-18] MEDS: ANCEF 5 IV (20:37)
[2025-04-18] MEDS: COLACE PO (20:42)
[2025-04-18] MEDS: ATIVAN PO (23:00)
[2025-04-19] VITALS (8 sets, daily range): BP systolic 115–136; BP diastolic 64–81; PULSE 119
[2025-04-19] MEDS: DILAUDID 0.25 MG IV (01:04)
[2025-04-19] MEDS: ANCEF 5 IV (04:15)
[2025-04-19] MEDS: NSS 1000 IV (04:50)
[2025-04-19 07:17] LABS: Hemoglobin 10.6 g/dL (13.0-18.0)
[2025-04-19 07:38] LABS: Blood Urea Nitrogen 22 mg/dl (9-20); Calcium 7.6 mg/dl (8.4-10.2); Carbon Dioxide 27 mmol/L (22-30); Chloride 103 mmol/L (98-107); Estimated Creatinine Clearance 99 ml/min; Glucose 239 mg/dl (70-99); Potassium 3.4 mmol/L (3.5-5.1); Sodium 135 mmol/L (135-145); eGFR > 60.00
[2025-04-19] MEDS: VITAMIN B1 100 MG PO ×2 (07:46→20:27)
[2025-04-19] MEDS: LEXAPRO 5 MG PO (07:46)
[2025-04-19] MEDS: LIPITOR 20 MG PO (07:46)
[2025-04-19] MEDS: CARDIZEM CD 180 MG PO (07:46)
[2025-04-19] MEDS: ASPIR LOW (ENTERIC COATED) 81 MG PO (07:46)
[2025-04-19] MEDS: THERAGRAN 1 TABLET PO (07:46)
[2025-04-19] MEDS: ATIVAN 0.5 MG PO ×2 (07:47→14:59)
[2025-04-19] MEDS: COLACE 100 MG PO (07:47)
[2025-04-19] MEDS: FOLVITE 1 MG PO (07:47)
[2025-04-19] MEDS: TOPROL XL 100 MG PO (07:47)
[2025-04-19] MEDS: ELIQUIS 2.5 MG PO ×2 (07:48→20:27)
--- NOTE | 2025-04-19 08:51 | W.PN.ORTHO ---
Today's Communication / Plan
-
74-year-old male POD #1 Right Hip Hemiarthroplasty performed on 04/18/[address] Tsai.
- Appreciate the Hospitalist team, continue Tx.
- Dispo planning, appreciate CM.
- Continue WBAT B/L LEs on walker/assistance.
- PT/OT, THPs x 6 weeks. Abductor pillow in place while in bed.
- DVT PPX: Eliquis 2.5mg BID x 3 days, then resume normal dose.
- Mepilex dressing to remain intact.
- Ice/elevation/pain control per primary team.
- Follow-up with Dr. Tsai 2 weeks post-op for x-rays and clinical examination. D/C information updated.
- Orthopedic surgery will continue to follow along.
Assessment
.
Distal Motor Intact: Yes
Dressing:
Clean, dry and intact. Dressing in place right hip/thigh.
Assessment:
POD#1 Right Hip Олег
Dressing CDI. Abductor pillow in place.
Calf soft, nontender to palpation.
Plan
.
Surgery / Date: Right Hip Олег 04/18/[address] Tsai
DVT Prophylaxis: Other (Eliquis)
Activity:
Out of bed. WBAT RLE on walker/assistance.
PT/OT, THPs x 6 weeks.
Discharge Plan: Other (Appreciate CM. )
Subjective
.
.:
Patient resting comfortably in bed. Reports that he is feeling well this morning.
Vital Signs and Labs
.
Vital Signs and Labs:
Lab Results
04/19/25 05:40
04/19/25 05:40
Temp Pulse Resp BP Pulse Ox
98.5 F 104 16 136/76 92
04/19/25 07:00 04/19/25 07:47 04/19/25 07:00 04/19/25 07:47 04/19/25 07:00
PT 16.6 Sec (11.4-14.6) H 04/15/25 13:13
INR 1.32 04/15/25 13:13
--- NOTE | 2025-04-19 08:56 | W.PN.HOSP.TC ---
Today's Communication/Plan
-
PT/OT
Assessment / Plan
Assessment / Plan
Physical Exam
General: Well Developed, Well Nourished, No Apparent Distress and Conversant
HEENT: Normocephalic, Moist mucous membranes, Atraumatic, [place] Conjunctivae, Nose Appears Normal and Ears Appear Normal
Respiratory: Clear
Cardiac: S1/S2 and Regular Rhythm
GI: Soft, Non Tender, Non Distended and Normal Bowel Sounds
Rectal: No bleeding
Genito-urinary: No Nelson
Musculoskeletal: No Clubbing, No Cyanosis,
Skin: Warm, IV/Catheter Site and Other (bruising to bilateral upper and lower extremities )
Neuro: Awake, Alert, AO x 3 and Nonfocal/grossly intact, no tremor.
Psych: Calm, mild anxiety noted, Intact Judgment/Insight
# Daily alcohol use could be contributing to his falls.
Risk for withdrawal. Patient admits to daily intake of alcohol.
Admits to mild withdrawal symptoms he had some agitation and/hallucination overnight. He seems to stabilize on oral Ativan
Discussed with nursing staff and patient. Patient prefers scheduled dose of Ativan. Discussed with nurse, c/w with MCS.
Continue with high-dose thiamine and folic acid
#Right femur fracture
mechanical fall
Right Hip X-ray: Impacted nondisplaced right femoral neck fracture.
s/p Right Hip Hemiarthroplasty performed on 04/18/[address] Tsai[address]: No acute intracranial abnormalities.
Findings compatible with diffuse cortical atrophy with nonspecific white matter changes as described above.
- Continue WBAT B/L LEs on walker/assistance.
- c/w pain control
- Back on Eliquis.
- Appreciate ortho help
# hyponatremia, mild
#essential hypertension
- continue amlodipine and metoprolol
#Permanent atrial fibrillation
- continue metoprolol
Added Cardizem, stopped amlodipine
- Back on Eliquis
#depression/anxiety
- continue escitalopram
#BPH
- continue tamsulosin
Code status: DNR
DVT prophylaxis: Eliquis
Total time spent to see the patient, examine the patient, review data and lab results, discuss treatment plan with patient, daughter, and nursing staff around 55 minutes
Anticipated Discharge: > 48 hours
Subjective/Interval History
-
Date of Service: April 19, 2025
No chest pain
No sob
No abdominal pain
Objective Data
-
Labs:
Laboratory Results
04/19/25
05:40
Hgb 10.6 L
Hct 30.0 L
Sodium 135
Potassium 3.4 L
Chloride 103
Carbon Dioxide 27
BUN 22 H
Creatinine 0.7
Glucose 239 H
Calcium 7.6 L
Vital Signs:
Vital Signs
Temp Pulse Resp BP Pulse Ox
98.5 F 104 16 136/76 92
04/19/25 07:00 04/19/25 07:47 04/19/25 07:00 04/19/25 07:47 04/19/25 07:00
I&O
04/18/25 04/19/25 04/20/25
06:59 06:59 06:59
Intake Total 480 / 480 1360 / 1360
Output Total 400 / 400 900 / 900
Balance 80 / 80 460 / 460
--- NOTE | 2025-04-19 15:43 | CM ---
CM following for discharge planning coordination. Pt plans to return home at discharge. Therapies recommending VN.; pt to consider.
Plan: CM to f/u with patient in am to review VN options and determine agency if pt is agreeable to same.
[2025-04-19] MEDS: FLOMAX 0.4 MG PO (17:41)
[2025-04-19] MEDS: COLACE PO (20:27)
[2025-04-19] MEDS: FLUSH (NSS) 1 FLUSH IV ×2 (20:31→20:54)
--- NOTE | 2025-04-19 21:51 | PTCARENOTE ---
Offered to walk with pt in the hallway or however long of a distance pt felt comfortable. Pt stated that he did a lot of therapy today and would like to rest this evening. Will try to ambulate pt again later.
[2025-04-19] MEDS: ATIVAN PO (23:00)
[2025-04-20 03:00] VITALS: BP 132/72
[2025-04-20 07:02] VITALS: BP 124/74
[2025-04-20] MEDS: CARDIZEM CD 180 MG PO (07:40)
[2025-04-20] MEDS: VITAMIN B1 100 MG PO ×2 (07:40→20:44)
[2025-04-20] MEDS: THERAGRAN 1 TABLET PO (07:41)
[2025-04-20] MEDS: COLACE 100 MG PO ×2 (07:41→20:44)
[2025-04-20] MEDS: ASPIR LOW (ENTERIC COATED) 81 MG PO (07:41)
[2025-04-20] MEDS: LIPITOR 20 MG PO (07:41)
[2025-04-20] MEDS: ATIVAN 0.5 MG PO (07:41)
[2025-04-20] MEDS: FOLVITE 1 MG PO (07:42)
[2025-04-20] MEDS: LEXAPRO 5 MG PO (07:42)
[2025-04-20] MEDS: ELIQUIS 2.5 MG PO ×2 (07:42→20:44)
[2025-04-20] MEDS: TOPROL XL 100 MG PO (07:42)
--- NOTE | 2025-04-20 08:16 | W.PN.HOSP.TC ---
Today's Communication/Plan
-
likely dc in am
Assessment / Plan
Assessment / Plan
Physical Exam
General: Well Developed, Well Nourished, No Apparent Distress and Conversant
HEENT: Normocephalic, Moist mucous membranes, Atraumatic, [place] Conjunctivae, Nose Appears Normal and Ears Appear Normal
Respiratory: Clear
Cardiac: S1/S2 and Regular Rhythm
GI: Soft, Non Tender, Non Distended and Normal Bowel Sounds
Rectal: No bleeding
Genito-urinary: No Nelson
Musculoskeletal: No Clubbing, No Cyanosis,
Skin: Warm, IV/Catheter Site and Other (bruising to bilateral upper and lower extremities )
Neuro: Awake, Alert, AO x 3 and Nonfocal/grossly intact, no tremor.
Psych: Calm,no anxiety noted, Intact Judgment/Insight
# Daily alcohol use could be contributing to his falls.
No signs of withdrawal. Stop MSAS protocol
c/w thiamine, change Ativan to PRN
#Right femur fracture
mechanical fall
Right Hip X-ray: Impacted nondisplaced right femoral neck fracture.
s/p Right Hip Hemiarthroplasty performed on 04/18/[address] Tsai[address]
Head [address]: No acute intracranial abnormalities.
Findings compatible with diffuse cortical atrophy with nonspecific white matter changes as described above.
- Continue WBAT B/L LEs on walker/assistance.
- c/w pain control
- Back on Eliquis.
- Appreciate ortho help
# hypokalemia, replaced.
# hyponatremia, mild
#essential hypertension
- continue amlodipine and metoprolol
#Permanent atrial fibrillation
- continue metoprolol
Added Cardizem, stopped amlodipine
- Back on Eliquis
#depression/anxiety
- continue escitalopram
#BPH
- continue tamsulosin
Code status: DNR
DVT prophylaxis: Eliquis
Total time spent to see the patient, examine the patient, review data and lab results, discuss treatment plan with patient, and nursing staff around 55 minutes
Anticipated Discharge: Within 24 hours
Subjective/Interval History
-
Date of Service: April 20, 2025
No chest pain
No sob
Objective Data
-
Vital Signs:
Vital Signs
Temp Pulse Resp BP Pulse Ox
98.5 F 92 16 124/74 98
04/20/25 07:02 04/20/25 07:42 04/20/25 07:02 04/20/25 07:42 04/20/25 07:02
I&O
04/19/25 04/20/25 04/21/25
06:59 06:59 06:59
Intake Total 1360 / 1360 1200 / 1200
Output Total 900 / 900 1175 / 1175
Balance 460 / 460
--- NOTE | 2025-04-20 08:47 | W.PN.ORTHO ---
Today's Communication / Plan
-
74-year-old male POD #2 Right Hip Hemiarthroplasty performed on 04/18/[address] Tsai.
- Appreciate the Hospitalist team, continue Tx.
- Dispo planning, appreciate CM.
- Continue WBAT B/L LEs on walker/assistance.
- PT/OT, THPs x 6 weeks. Abductor pillow in place while in bed.
- DVT PPX: Eliquis 2.5mg BID x 3 days, then resume normal dose.
- Mepilex dressing CDI; to remain intact until post-op visit.
- Ice/elevation/pain control per primary team.
- Follow-up with Dr. Tsai 2 weeks post-op for x-rays and clinical examination. D/C information updated.
- Orthopedic surgery will sign off at this time. Please reengage with any further questions or concerns.
Assessment
.
Distal Motor Intact: Yes
Dressing:
Mepilex dressing clean, dry and intact without strikethrough.
Assessment:
POD#2 Right Hip Олег
Dressing CDI. Abductor pillow in place.
Calf soft, nontender to palpation.
Plan
.
Surgery / Date: Right Hip Олег 04/18/[address] Tsai
DVT Prophylaxis: Other (Eliquis)
Activity:
Out of bed. WBAT RLE on walker/assistance.
PT/OT, THPs x 6 weeks.
Discharge Plan: Other (Appreciate CM. )
Subjective
.
.:
Patient resting comfortably in bed. Reports that pain is well controlled; denies any complaints of pain this AM. Worked with PT/OT yesterday and reports that he did well. Denies any new complaints or concerns at this time.
Vital Signs and Labs
.
Vital Signs and Labs:
Lab Results
04/19/25 05:40
04/19/25 05:40
Temp Pulse Resp BP Pulse Ox
98.5 F 92 16 124/74 98
04/20/25 07:02 04/20/25 07:42 04/20/25 07:02 04/20/25 07:42 04/20/25 07:02
PT 16.6 Sec (11.4-14.6) H 04/15/25 13:13
INR 1.32 04/15/25 13:13
[2025-04-20 11:41] VITALS: BP 117/63
[2025-04-20 15:04] VITALS: BP 139/73
[2025-04-20] MEDS: FLOMAX 0.4 MG PO (16:59)
[2025-04-20 19:00] VITALS: BP 121/64
[2025-04-20 23:00] VITALS: BP 133/66
[2025-04-21 03:00] VITALS: BP 142/77
[2025-04-21 07:30] VITALS: BP 136/69
[2025-04-21 07:30] LABS: Hematocrit 32.6 % (39.0-52.0); Hemoglobin 11.4 g/dL (13.0-18.0); Mean Corpuscular Hgb 32.6 pg (27.0-31.0); Mean Corpuscular Volume 93.1 fL (80.0-94.0); Mean Platelet Volume 9.2 fL (7.4-10.4); Platelet Count 205 10^3/uL (130-400); Red Cell Dist. Width 14.2 % (11.5-14.5)
[2025-04-21] MEDS: FOLVITE 1 MG PO (08:27)
[2025-04-21] MEDS: ELIQUIS 2.5 MG PO (08:27)
[2025-04-21] MEDS: THERAGRAN 1 TABLET PO (08:27)
[2025-04-21] MEDS: COLACE PO ×2 (08:28→08:33)
[2025-04-21] MEDS: ASPIR LOW (ENTERIC COATED) 81 MG PO (08:28)
[2025-04-21] MEDS: CARDIZEM CD 180 MG PO (08:28)
[2025-04-21] MEDS: LEXAPRO 5 MG PO (08:28)
[2025-04-21] MEDS: TOPROL XL 100 MG PO (08:28)
[2025-04-21] MEDS: VITAMIN B1 100 MG PO (08:28)
[2025-04-21] MEDS: LIPITOR 20 MG PO (08:28)
[2025-04-21 08:31] LABS: Blood Urea Nitrogen 16 mg/dl (9-20); Calcium 8.3 mg/dl (8.4-10.2); Carbon Dioxide 29 mmol/L (22-30); Chloride 102 mmol/L (98-107); Estimated Creatinine Clearance 99 ml/min; Glucose 97 mg/dl (70-99); Potassium 3.4 mmol/L (3.5-5.1); Sodium 135 mmol/L (135-145); eGFR > 60.00
--- NOTE | 2025-04-21 09:22 | CM ---
Cm reviewed medical records. CM met with patient in room. Patient is agreeable to [facility]. [facility] Admission RN updated on new referral.
PLAN: home with girlfriend and [facility].
--- NOTE | 2025-04-21 09:53 | VNURNOTE ---
Home Health Liaison met with patient and sig other at bedside to discuss [facility] nurse/therapy, visits, schedule and homebound status. Patient is agreeable and understands that visits at home will be 2-3 x per week to assess and teach medical
management. Patient /sig other plan on obtaining a commode from [employer] or [employer]. Pt confirms he has a RW at home.
Patient is aware that [facility] will contact them for start of care in 1-2 days after discharge from .
[facility] referral completed in [facility].
--- NOTE | 2025-04-21 10:25 | W.PN.HOSP.TC ---
Today's Communication/Plan
-
dc
Assessment / Plan
Assessment / Plan
Physical Exam
General: Well Developed, Well Nourished, No Apparent Distress and Conversant
HEENT: Normocephalic, Moist mucous membranes, Atraumatic, [place] Conjunctivae, Nose Appears Normal and Ears Appear Normal
Respiratory: Clear
Cardiac: S1/S2 and Regular Rhythm
GI: Soft, Non Tender, Non Distended and Normal Bowel Sounds
Rectal: No bleeding
Genito-urinary: No Nelson
Musculoskeletal: No Clubbing, No Cyanosis,
Skin: Warm, No new rash. Right femur surgery site no edema or erythema, no discharge .
Neuro: Awake, Alert, AO x 3 and Nonfocal/grossly intact, no tremor.
Psych: Calm,no anxiety noted, Intact Judgment/Insight
# Daily alcohol use could be contributing to his falls.
No signs of withdrawal. Stopped MSAS protocol
s/p high dose thiamine. He was counseled to quit drinking alcohol specially being on systemic anticoagulation with Eliquis and risk of fall, he verbalized understanding.
#Right femur fracture
mechanical fall
Right Hip X-ray: Impacted nondisplaced right femoral neck fracture.
s/p Right Hip Hemiarthroplasty performed on 04/18/[address] Tsai[address]
Head [address]: No acute intracranial abnormalities.
Findings compatible with diffuse cortical atrophy with nonspecific white matter changes as described above.
- Continue WBAT B/L LEs on walker/assistance.
- c/w pain control
- Back on Eliquis.
- Appreciate ortho help
# hypokalemia, replaced.
# hyponatremia, mild
#essential hypertension
- continue amlodipine and metoprolol
#Permanent atrial fibrillation
- continue metoprolol
Added Cardizem, stopped amlodipine
- Back on Eliquis
#depression/anxiety
- continue escitalopram
#BPH
- continue tamsulosin
Code status: DNR
DVT prophylaxis: Eliquis
I called daughter Jaylin and left her VM about discharge plan with call back number if she will have concerns
Total discharge time spent to see the patient, examine the patient, review data and lab results, discuss discharge plan with patient, and nursing staff around 55 minutes
Anticipated Discharge: Today
Subjective/Interval History
-
Date of Service: April 21, 2025
No chest pain
No abdominal pain
No sob
He wants to go home
Pain pain is not severe or bothering the patient
Objective Data
-
Labs:
Laboratory Results
04/21/25 04/21/25
06:41 06:42
WBC 6.0
Hgb 11.4 L
Hct 32.6 L
Plt Count 205 D
Sodium 135
Potassium 3.4 L
Chloride 102
Carbon Dioxide 29
BUN 16
Creatinine 0.7
Glucose 97
Calcium 8.3 L
Vital Signs:
Vital Signs
Temp Pulse Resp BP Pulse Ox
98.8 F 91 18 136/69 96
04/21/25 07:30 04/21/25 08:28 04/21/25 07:30 04/21/25 08:28 04/21/25 07:30
I&O
04/20/25 04/21/25 04/22/25
06:59 06:59 06:59
Intake Total 1200 / 1200 480 / 480
Output Total 1175 / 1175 2525 / 2525
Balance -2044 /
[2025-04-21 11:30] VITALS: BP 116/50
--- NOTE | 2025-04-21 15:18 | W.DCSUMMARY ---
Discharge Summary
Discharge Data
Date of Admission: 04/15/25
Date of Discharge: 04/21/25
-
Pending Results: No
Hospital Course
74 years old male who presented after a fall at home. Patient was found to have impacted nondisplaced right femoral neck fracture. Patient was evaluated by orthopedic doctor recommended surgical repair. Surgery was delayed until Eliquis washout.
Patient reported history of daily alcohol use. He was put on MSAS protocol. He was given Ativan as needed with high-dose vitamins including thiamine and folic acid. He did not have significant delirium. He subsequently underwent right hip
hemiarthroplasty on April [address] Tsai with no complications. Eliquis was resumed postoperatively. Patient was noted to have uncontrolled tachycardia. Amlodipine was discontinued was started on Cardizem with good response. Patient was
evaluated by physical therapy and recommended home health services. human resources operations manager was consulted. Patient did not have significant pain in his hip and did not require pain killers in the hospital. Patient remained hemodynamically stable and was
discharged home in a stable condition.
Discharge Plan
-
Patient Disposition: Home with Home Care
Discharge Diagnosis/Procedures: Right Hip Hemiarthroplasty performed on 04/18/[address] Tsai.
Hypertension, A-fib, please note that we stopped amlodipine and started you on Cardizem in the hospital to better control your heart rate. You tolerated Cardizem in the hospital
Diet: As tolerated
Referrals:
Ignacia Ansari NP [Family Provider, Family Practice] - in one to two weeks
Terry Tsai MD [Active, Orthopedics] - in two weeks
Prescriptions:
New
acetaminophen 325 mg Tablet
650 mg PO Q4HPRN PRN (Reason: mild pain/SANCHEZ/temp> 100.4F) Qty: 10 0RF
diltiazem HCl 180 mg Capsule,Extended Release 24hr
180 mg PO DAILY Qty: 30 0RF
Continued
atorvastatin [Lipitor] 20 mg Tablet
20 mg PO DAILY
metoprolol succinate [Toprol XL] 100 mg Tablet Extended Release 24 Hr
100 mg PO DAILY
therapeutic multivitamin Tablet
1 tab PO DAILY
aspirin 81 mg Tablet,Delayed Release (Dr/Ec)
81 mg PO DAILY
tamsulosin [Flomax] 0.4 mg Capsule
0.4 mg PO DAILY
escitalopram oxalate [Lexapro] 5 mg Tablet
5 mg PO DAILY
Eliquis 5 mg Tablet
5 mg PO BID
Discontinued
hydrocodone-ibuprofen 7.5-200 mg Tablet
1 tab PO BIDPRN PRN (Reason: severe pains)
Patient Comments:
pdmp patient order picker on 02/25/25 #20
amlodipine [Norvasc] 10 mg Tablet
10 mg PO DAILY
Discharge Orders:
Discharge Patient (As Directed); Ordered 04/21/25
Ordered By: Erika Brambila
Discharge Date and Time
Discharge Date/Time: 04/21/25 11:52
Print Language: [email or web address]
== END 2025-04-21 11:52 | disposition home health service (06) | DRG 522 ==
LOC: 2 SOUTH 16:26
PROVIDERS: Nurse Practitioner Family; Physician Assistant Medical; Student in an Organized Health Care Education/Training Program; ADMITTING PHYSICIAN Internal Medicine; ATTENDING PHYSICIAN Internal Medicine; CONSULT PHYSICIAN Orthopaedic Surgery; EMERGENCY PHYSICIAN Emergency Medicine; FAMILY PHYSICIAN Nurse Practitioner Family
PROC: 0SRR0J9 Replacement of Right Hip Joint, Femoral Surface with Synthetic Substitute, Cemented, Open Approach (ICD-10-PCS; 2025-04-18)
DX: S72.001A Fracture of unspecified part of neck of right femur, initial encounter for closed fracture (principal); E87.1 Hypo-osmolality and hyponatremia; I48.21 Permanent atrial fibrillation; S40.811A Abrasion of right upper arm, initial encounter; S40.022A Contusion of left upper arm, initial encounter; S40.021A Contusion of right upper arm, initial encounter; W01.0XXA Fall on same level from slipping, tripping and stumbling without subsequent striking against object, initial encounter; I10 Essential (primary) hypertension; N40.0 Benign prostatic hyperplasia without lower urinary tract symptoms; F32.A Depression, unspecified; F41.9 Anxiety disorder, unspecified; F10.90 Alcohol use, unspecified, uncomplicated; Z66 Do not resuscitate; Z79.899 Other long term (current) drug therapy; Z87.891 Personal history of nicotine dependence; Z79.01 Long term (current) use of anticoagulants; Z79.82 Long term (current) use of aspirin; E87.6 Hypokalemia
CPT/HCPCS: 70450; 73502; 80048; 80053; 85014; 85018; 85025; 85027; 85610; 85730; 86850; 86900; 86901; 93005; 96374; 96376; 97110; 97116; 97162; 97166; 97530; 97535; 99285; C1713; C1776